=== PATIENT | male | born 1970 | race American Indian/Alaskan Native ===

== ENCOUNTER 2017-03-26 20:29 | Emergency (ER) | payer SELFPAY ==
[2017-03-26 20:49] VITALS: BP 155/80
== END 2017-03-27 02:57 | disposition left against medical advice (07) ==
LOC: ED 20:29
DX: J02.9 Acute pharyngitis, unspecified (principal); Z53.21 Procedure and treatment not carried out due to patient leaving prior to being seen by health care provider
CPT/HCPCS: 87430

== ENCOUNTER 2017-03-27 16:08 | Emergency (ER) | payer SELFPAY ==
[2017-03-27 16:21] VITALS: BP 142/86
[2017-03-27] MEDS ORDERED: TYLENOL PO ONE ×2 (16:21→21:49)
[2017-03-27] MEDS ORDERED: TYLENOL ONE (21:51)
== END 2017-03-27 21:20 | disposition left against medical advice (07) ==
LOC: ED 16:08
DX: J02.9 Acute pharyngitis, unspecified (principal); Z53.21 Procedure and treatment not carried out due to patient leaving prior to being seen by health care provider

== ENCOUNTER 2017-06-14 17:05 | Emergency (ER) | payer BC ==
[2017-06-14 17:36] VITALS: BP 147/73
[2017-06-14] MEDS ORDERED: NORCO 5/325 PO ONE (18:54)
--- NOTE | 2017-06-14 18:55 | Emergency Department Report ---
HPI - General Chief Complaint: Extremity Injury, Upper Time Seen by Provider: 06/14/17 18:51 - HPI HPI: right elbow pain, after working, no trauma. ED Past Medical Hx - Past Medical History Previous Medical History?: No - Surgical History Past Surgical History?: No - Social History Smoking Status: Current Every Day Smoker Substance Use Type: Alcohol - Medications Home Medications: Home Medications Medication Instructions Recorded Confirmed Last Taken Type Ketorolac [Toradol] 10 mg PO Q6H PRN #14 tablet 06/14/17 Unknown Rx ED Review of Systems ROS: Stated complaint: RIGHT ELBOW SWOLLEN Other details as noted in HPI Physical Exam - Physical Exam Vital Signs: Vital Signs 06/14/17 17:33 Temperature 98.3 F Pulse Rate 95 H Respiratory 18 Rate Blood Pressure 147/73 O2 Sat by Pulse 98 Oximetry ED Course Vital Signs 06/14/17 17:33 Temperature 98.3 F Pulse Rate 95 H Respiratory 18 Rate Blood Pressure 147/73 O2 Sat by Pulse 98 Oximetry Critical care attestation.: If time is entered above; I have spent that time in minutes in the direct care of this critically ill patient, excluding procedure time. ED Disposition Disposition: DC- TO HOME OR SELFCARE Condition: Stable Instructions: Tennis Elbow (ED) Prescriptions: Ketorolac [Toradol] 10 mg PO Q6H PRN #14 tablet PRN Reason: Pain Referrals: PEDRO BLOOM [Other] - 3-5 Days FANI LAMBERT MD [Staff Physician] - 3-5 Days Forms: Work/School Release Form(ED)
== END 2017-06-14 19:15 | disposition home or self-care (01) ==
LOC: ED 17:05
DX: M25.521 Pain in right elbow (principal); F17.200 Nicotine dependence, unspecified, uncomplicated
CPT/HCPCS: 99282

== ENCOUNTER 2018-09-28 10:00 | Emergency (ER) | payer SELFPAY ==
[2018-09-28] MEDS ORDERED: NACL 0.9% 1000 ML 1,000 ML IV ONE (10:12)
[2018-09-28 10:33] LABS: Basophils % (Auto) 0.5 % (0.0-1.8); Eosinophils # (Auto) 0.1 K/mm3 (0.0-0.4); Eosinophils % (Auto) 2.2 % (0.0-4.3); Hematocrit 43.7 % (35.5-45.6); Hemoglobin 14.9 gm/dl (11.8-15.2); Lymphocytes # (Auto) 1.9 K/mm3 (1.2-5.4); Lymphocytes % (Auto) 32.4 % (13.4-35.0); Mean Corpuscular HGB Conc 34 % (32-34); Mean Corpuscular Volume 96 fl (84-94); Monocytes # (Auto) 0.8 K/mm3 (0.0-0.8); Monocytes % (Auto) 13.5 % (0.0-7.3); Platelet Count 316 K/mm3 (140-440); Red Blood Count 4.58 M/mm3 (3.65-5.03); Red Cell Distribution Width 13.6 % (13.2-15.2)
[2018-09-28] MEDS ORDERED: TORADOL IV ONE (10:42)
[2018-09-28 10:43] LABS: INR 0.93 (0.87-1.13); Partial Thromboplastin Time 32.6 Sec. (24.2-36.6)
[2018-09-28 10:57] LABS: BUN/Creatinine Ratio 9; Blood Urea Nitrogen 9 mg/dL (9-20); Calcium 9.6 mg/dL (8.4-10.2); Hemolysis Index 38
[2018-09-28 11:01] LABS: Alanine Aminotransferase 24 units/L (7-56)
[2018-09-28 11:05] LABS: Bilirubin,Direct < 0.2 mg/dL (0-0.2)
[2018-09-28 11:28] LABS: Erythrocyte Sedimentation Rate 33 mm/Hr (0-20)
--- NOTE | 2018-09-28 11:52 | Cat Scan Report ---
CT HEAD WITHOUT CONTRAST INDICATION / CLINICAL INFORMATION: Headache for 4 days. TECHNIQUE: Axial imaging performed from the skull apex through the skull base without the use of cont rast. Sagittal and coronal reformatted images. All CT scans at this location are performed using CT dose reduction for ALARA by means of automated exposure control. COMPARISON: None available. FINDINGS: CEREBRAL PARENCHYMA: No significant abnormality. No acute territorial infarct. HEMORRHAGE: None. EXTRA-AXIAL SPACES: Normal in size and morphology for the patient's age. VENTRICULAR SYSTEM: Normal in size and morphology for the patient's age. MIDLINE SHIFT OR HERNIATION: None. CEREBELLUM / BRAINSTEM: No significant abnormality. CALVARIUM: No significant abnormality. ORBITS: Normal as visualized. PARANASAL SINUSES / MASTOID AIR CELLS: There is moderate mucosal thickening and trace fluid in the fr ontal, ethmoids and visualized superior maxillary sinuses. The sphenoid sinuses and mastoid air cells are well-aerated. SOFT TISSUES of HEAD: No significant abnormality. ADDITIONAL FINDINGS: None. IMPRESSION: No acute intracranial abnormality. Sinus disease as described. Correlate for acute sinusitis. Signer Name: Dawit Villa Jr, MD Signed: 09/28/2018 11:47 AM Workstation Name: [id number]
--- NOTE | 2018-09-28 12:54 | Emergency Department Report ---
ED General Adult HPI - General Chief complaint: Headache Stated complaint: HEADACHES FOR WKS/PAIN Time Seen by Provider: 09/28/18 12:43 Source: patient Mode of arrival: Ambulatory Limitations: No Limitations - History of Present Illness Initial comments: 47 year old male presents for evaluation of a frontal headache. He reports tenderness to pressure over his forehead. He said symptoms for the past few days. They have been associated with congestion. He thought he had a sinus infection and took a azithromycin which she had at home. He denies fever or chills, neck symptoms nausea vomiting and photophobia. It is no prior history of sinus infection nor any other medical problem. He denies a family history of cerebral aneurysm and migraine headache. He reports a gradual onset of a throbbing headache approximately 2 days ago. -: Gradual, days(s) Location: head Radiation: non-radiation Severity scale (0 -10): 6 Quality: other (throbbing) Consistency: intermittent Improves with: none Worsens with: none Associated Symptoms: denies other symptoms Treatments Prior to Arrival: other (azithromycin) - Related Data Previous Rx's Medication Instructions Recorded Last Taken Type Azithromycin [Zithromax Z-FLYNN] 250 mg PO DAILY #6 pack 09/28/18 Unknown Rx Butalb/Acetaminophen/Caffeine 1 cap PO Q6HR PRN #7 cap 09/28/18 Unknown Rx [Fioricet 50-300-40 mg CAP] Allergies Allergy/AdvReac Type Severity Reaction Status Date / Time Penicillins Allergy Hives Verified 03/26/17 20:40 ED Review of Systems ROS: Stated complaint: HEADACHES FOR WKS/PAIN Other details as noted in HPI Constitutional: denies: chills, fever Eyes: denies: eye pain, eye discharge, vision change ENT: as per HPI. denies: ear pain, throat pain Respiratory: denies: cough, shortness of breath, wheezing Cardiovascular: denies: chest pain, palpitations Endocrine: no symptoms reported Gastrointestinal: denies: abdominal pain, nausea, diarrhea Genitourinary: denies: urgency, dysuria Musculoskeletal: denies: back pain, joint swelling, arthralgia Skin: denies: rash, lesions Neurological: headache. denies: weakness, paresthesias Psychiatric: denies: anxiety, depression Hematological/Lymphatic: denies: easy bleeding, easy bruising ED Past Medical Hx - Past Medical History Previous Medical History?: No Hx Hypertension: No - Surgical History Past Surgical History?: No - Social History Smoking Status: Current Every Day Smoker Substance Use Type: Alcohol, Marijuana - Medications Home Medications: Home Medications Medication Instructions Recorded Confirmed Last Taken Type Azithromycin [Zithromax Z-FLYNN] 250 mg PO DAILY #6 pack 09/28/18 Unknown Rx Butalb/Acetaminophen/Caffeine 1 cap PO Q6HR PRN #7 cap 09/28/18 Unknown Rx [Fioricet 50-300-40 mg CAP] ED Physical Exam - General Limitations: No Limitations General appearance: alert, in no apparent distress - Head Head exam: Present: atraumatic, normocephalic, other (tenderness to pressure over the frontal sinuses no swelling no erythema) - Eye Eye exam: Present: normal appearance. Absent: scleral icterus - ENT ENT exam: Present: normal exam, normal orophraynx, mucous membranes moist - Neck Neck exam: Present: normal inspection, full ROM. Absent: tenderness, meningismus - Respiratory Respiratory exam: Present: normal lung sounds bilaterally. Absent: respiratory distress - Cardiovascular Cardiovascular Exam: Present: regular rate, normal rhythm. Absent: systolic murmur, diastolic murmur, rubs, gallop - GI/Abdominal GI/Abdominal exam: Present: soft, normal bowel sounds. Absent: distended, tenderness, guarding - Rectal Rectal exam: Present: deferred - Extremities Exam Extremities exam: Present: normal inspection. Absent: calf tenderness - Back Exam Back exam: Present: normal inspection. Absent: CVA tenderness (R), CVA tenderness (L), paraspinal tenderness, vertebral tenderness - Neurological Exam Neurological exam: Present: alert, oriented X3, CN II-XII intact. Absent: motor sensory deficit - Psychiatric Psychiatric exam: Present: normal affect, normal mood - Skin Skin exam: Present: warm, dry, intact, normal color. Absent: rash ED Course Vital Signs 09/28/18 09/28/18 10:13 10:41 Temperature 98.6 F 98.5 F Pulse Rate 71 61 Respiratory 20 18 Rate Blood Pressure 152/82 Blood Pressure 152/84 [Left] O2 Sat by Pulse 99 100 Oximetry - Reevaluation(s) Reevaluation #1: Patient without headache after Toradol. He looks well. He certainly not toxic. His labs were normal. His CT is correlating with frontal sinusitis. He will be treated thereof. He is appropriate for outpatient referral and disposition. 09/28/18 12:54 ED Medical Decision Making - Lab Data Result diagrams: 09/28/18 10:16 09/28/18 10:16 Laboratory Results - last 24 hr 09/28/18 09/28/18 09/28/18 10:16 10:16 10:16 WBC 6.0 RBC 4.58 Hgb 14.9 Hct 43.7 MCV 96 H MCH 33 H MCHC 34 RDW 13.6 Plt Count 316 Lymph % (Auto) 32.4 [place] % (Auto) 13.5 H Eos % (Auto) 2.2 Baso % (Auto) 0.5 Lymph # 1.9 [place] # 0.8 Eos # 0.1 Baso # 0.0 Seg Neutrophils % 51.4 Seg Neutrophils # 3.1 ESR 33 PT 12.2 INR 0.93 APTT 32.6 Sodium 139 Potassium 4.4 Chloride 102.2 Carbon Dioxide 27 Anion Gap 14 BUN 9 Creatinine 1.0 Estimated GFR > 60 BUN/Creatinine Ratio 9 Glucose 126 H Lactic Acid Calcium 9.6 Magnesium Total Bilirubin Direct Bilirubin AST ALT Alkaline Phosphatase Total Protein Albumin Albumin/Globulin Ratio 09/28/18 09/28/18 10:16 10:16 WBC RBC Hgb Hct MCV MCH MCHC RDW Plt Count Lymph % (Auto) [place] % (Auto) Eos % (Auto) Baso % (Auto) Lymph # [place] # Eos # Baso # Seg Neutrophils % Seg Neutrophils # ESR PT INR APTT Sodium Potassium Chloride Carbon Dioxide Anion Gap BUN Creatinine Estimated GFR BUN/Creatinine Ratio Glucose Lactic Acid 0.80 Calcium Magnesium 2.00 Total Bilirubin 0.50 Direct Bilirubin < 0.2 AST 15 ALT 24 Alkaline Phosphatase 84 Total Protein 7.7 Albumin 4.0 Albumin/Globulin Ratio 1.1 Critical care attestation.: If time is entered above; I have spent that time in minutes in the direct care o f this critically ill patient, excluding procedure time. ED Disposition Clinical Impression: Acute frontal sinusitis Qualifiers: Recurrence: not specified as recurrent Qualified Code(s): J01.10 - Acute front al sinusitis, unspecified Disposition: DC-01 TO HOME OR SELFCARE Is pt being admited?: No Does the pt Need Aspirin: No Condition: Stable Instructions: Sinusitis (ED), Acute Headache (ED) Additional Instructions: Follow up with [facility] and throat doctor. Return to the emergency department any significant headache fever or chills. Prescriptions: Butalb/Acetaminophen/Caffeine [Fioricet 50-300-40 mg CAP] 1 cap PO Q6HR PRN #7 cap PRN Reason: Headache Azithromycin [Zithromax Z-FLYNN] 250 mg PO DAILY #6 pack Referrals: PRIMARY CARE, [Primary Care Provider] - 3-5 Days Time of Disposition: 12:56
[2018-09-28 14:10] VITALS: BP 145/73
== END 2018-09-28 14:09 | disposition home or self-care (01) ==
LOC: ED 10:00
DX: J01.10 Acute frontal sinusitis, unspecified (principal); F17.200 Nicotine dependence, unspecified, uncomplicated; F12.10 Cannabis abuse, uncomplicated
CPT/HCPCS: 36415; 70450; 80048; 80076; 82140; 83735; 85025; 85610; 85652; 85730; 96374; 99284; J1885; J7030

== ENCOUNTER 2021-03-18 08:01 | Emergency (ER) | payer SELFPAY ==
[2021-03-18 08:14] VITALS: BP 152/90
--- NOTE | 2021-03-18 08:46 | XRay Report ---
CHEST 2 VIEWS INDICATION: Chest Pain. COMPARISON: None. FINDINGS: Support devices: None. Heart: Within normal limits. Lungs/Pleura: No acute air space or interstitial disease. No significant pleural effusion. IMPRESSION: No acute findings. Signer Name: Derek Forbes MD Signed: 03/18/2021 8:41 AM Workstation Name: [id number]
--- NOTE | 2021-03-18 08:51 | Emergency Department Report ---
ED General Adult HPI - General Chief complaint: High BP Stated complaint: BP HIGH PUI?: No Time Seen by Provider: 03/18/21 08:21 Source: patient Mode of arrival: Ambulatory Limitations: No Limitations - History of Present Illness Initial comments: 50 YO AA MALE COMES TO ER FROM WORK. HE STATES HE FELT FUNNY SO THEY TOOK HIS BP AND IT WAS ELEVATED. THEY SENT HIM TO ER. BP NOTED ON ARRIVAL TO BE SLIGHTLY ELEVATED NO HX HTN PT NEURO INTACT AMBULATORY NO CP NO SOB HE STATES THEY SCARED HIM. AND THEN GOT THE INVOLVED. -: Sudden Improves with: none Worsens with: none Associated Symptoms: denies other symptoms Treatments Prior to Arrival: none - Related Data Allergies Allergy/AdvReac Type Severity Reaction Status Date / Time Penicillins Allergy Hives Verified 03/26/17 20:40 ED Review of Systems ROS: Stated complaint: BP HIGH Other details as noted in HPI Comment: All other systems reviewed and negative ED Past Medical Hx - Past Medical History Previous Medical History?: No Hx Hypertension: No - Surgical History Past Surgical History?: No - Family History Family history: no significant - Social History Smoking Status: Current Every Day Smoker Substance Use Type: Alcohol, Marijuana ED Physical Exam - General Limitations: No Limitations General appearance: alert, in no apparent distress - Head Head exam: Present: atraumatic, normocephalic - Eye Eye exam: Present: normal appearance - ENT ENT exam: Present: mucous membranes moist - Neck Neck exam: Present: normal inspection - Respiratory Respiratory exam: Present: normal lung sounds bilaterally. Absent: respiratory distress - Cardiovascular Cardiovascular Exam: Present: regular rate, normal rhythm. Absent: systolic murmur, diastolic murmur, rubs, gallop - GI/Abdominal GI/Abdominal exam: Present: soft, normal bowel sounds - Rectal Rectal exam: Present: deferred - Extremities Exam Extremities exam: Present: normal inspection - Back Exam Back exam: Present: normal inspection - Neurological Exam Neurological exam: Present: alert, oriented X3 - Psychiatric Psychiatric exam: Present: normal affect, normal mood - Skin Skin exam: Present: warm, dry, intact, normal color. Absent: rash ED Course Vital Signs 03/18/21 08:13 Temperature 98.3 F Pulse Rate 76 Respiratory 18 Rate Blood Pressure 152/90 [Right] O2 Sat by Pulse 97 Oximetry ED Medical Decision Making - Lab Data Result diagrams: 03/18/21 08:50 03/18/21 08:50 - EKG Data EKG shows normal: sinus rhythm Rate: normal - EKG Data When compared to previous EKG there are: no significant change Interpretation: no acute changes, normal EKG - Radiology Data Radiology results: report reviewed, image reviewed - Medical Decision Making Labs 03/18/21 03/18/21 08:50 08:50 WBC 7.5 RBC 4.63 Hgb 14.9 Hct 43.3 MCV 94 MCH 32 MCHC 34 RDW 13.5 Plt Count 363 Sodium 140 Potassium 4.3 Chloride 104.1 Carbon Dioxide 22 Anion Gap 18 BUN 9 Creatinine 1.0 Estimated GFR > 60 BUN/Creatinine Ratio 9 Glucose 114 H Calcium 10.0 Magnesium 2.00 Total Bilirubin 0.60 AST 24 ALT 33 Alkaline Phosphatase 82 Troponin T < 0.010 Total Protein 8.4 H Albumin 4.9 Albumin/Globulin Ratio 1.4 Vital Signs 03/18/21 08:13 Temperature 98.3 F Pulse Rate 76 Respiratory 18 Rate Blood Pressure 152/90 [Right] O2 Sat by Pulse 97 Oximetry EKG NORMAL XRAY NORMAL LABS NORMAL BP MILDLY ELEVATED ON ARRIVAL NO CP OR SOB MADE HIM COME TO BE CHECKED EDUCATED ON FINDINGS DC HOME WITH DC PLAN OF CARE INCLUDING DIET/ACTIVITY/FOLLOW UP AND TRENDING HIS BP. HE VERBALIZES UNDERSTANDING OF PLAN OF CARE - Differential Diagnosis htn; ro acs/aortic disease Critical care attestation.: If time is entered above; I have spent that time in minutes in the direct care of this critically ill patient, excluding procedure time. ED Disposition Clinical Impression: Elevated blood-pressure reading without diagnosis of hypertension Disposition: 01 HOME / SELF CARE / HOMELESS Is pt being admited?: No Does the pt Need Aspirin: No Condition: Stable Instructions: Hypertension, Adult, [id number], Preventing Hypertension Additional Instructions: TAKE BLOOD PRESSURE DAILY WE DISCUSSED SAME CUFF SAME ARM SAME TIME OF DAY RECORD IT IN PHONE DRINK ALOT OF WATER AVOID FATTY/FAST AND FRIED FOOD AVOID SALT FOLLOW UP WITH OUR PCP NEXT WEEK REFERRAL BELOW TAKE YOUR BP LOG WITH YOU TO THE APPOINTMENT Referrals: HUSSAIN PACE MD [Staff Physician] - 3-5 Days Forms: Work/School Release Form(ED) Time of Disposition: 09:25 Print Language: FRISIAN
[2021-03-18 09:03] LABS: Hematocrit 43.3 % (35.5-45.6); Hemoglobin 14.9 gm/dl (11.8-15.2); Mean Corpuscular HGB Conc 34 % (32-34); Mean Corpuscular Volume 94 fl (84-94); Platelet Count 363 K/mm3 (140-440); Red Blood Count 4.63 M/mm3 (3.65-5.03); Red Cell Distribution Width 13.5 % (13.2-15.2)
[2021-03-18 09:21] LABS: Alanine Aminotransferase 33 units/L (7-56); Albumin 4.9 g/dL (3.9-5); BUN/Creatinine Ratio 9; Blood Urea Nitrogen 9 mg/dL (9-20); Hemolysis Index 8
--- NOTE | 2021-03-18 10:28 | Electrocardiograph Report ---
[facility] Test Date: 2021-03-18 Test Time: 08:26:11 Pat Name: KAHLIL TYLER Department: Room: Gender: M Dishwasher Preparer: JAJA : 1970 Requested By: TREVON WADE Order Number: [id number] Reading MD: Francisco Menendez Measurements Intervals [place] Rate: 67 P: 24 NM: 145 QRS: 22 QRSD: 88 T: 10 QT: 387 QTc: 409 Interpretive Statements Sinus rhythm No previous ECG available for comparison Electronically Signed On 03-18-2021 10:27:54 EST by Francisco Menendez
== END 2021-03-18 09:33 | disposition home or self-care (01) ==
LOC: ED 08:01
DX: R03.0 Elevated blood-pressure reading, without diagnosis of hypertension (principal); F17.200 Nicotine dependence, unspecified, uncomplicated; Z88.0 Allergy status to penicillin
CPT/HCPCS: 36415; 71046; 80053; 83735; 83880; 84484; 85027; 93005; 93010; 99283

== ENCOUNTER 2021-09-30 10:59 | Emergency (ER) | payer BC ==
[2021-09-30 11:46] VITALS: BP 132/82
--- NOTE | 2021-09-30 12:56 | Emergency Department Report ---
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 50-year-old male with no known history of hypertension presents states high blood pressure. Patient reports blood pressure this morning was in the 180s systolic over 150s diastolic, denies history of hypertension, symptoms associated with headache, dizziness, fatigue. He denies chest pain, no shortness of breath. In the setting of a significantly high volume and record number of patients presenting to the emergency department and the fact that we have a limited space to see patients we have implemented the provider in triage protocol this allows an expedited initial exam of patients that might otherwise have left without being seen or who would wait longer than usual to be seen by provider. I interviewed the patient and performed a limited physical exam. This patient is a pulled from the waiting room to triage room for an initial assessment of adrenal studies and then returned to the waiting room pending results of the studies. The ultimate final evaluation and disposition may be performed by another provider depending on room and provider availability. - Exam Vital Signs: Vital Signs 09/30/21 11:42 Temperature 97.8 F Pulse Rate 89 Respiratory 18 Rate Blood Pressure 132/82 [Right] O2 Sat by Pulse 97 Oximetry MSE screening note: Focused history and physical exam performed. Due to findings the following was ordered: ED Disposition for MSE Condition: Stable
--- NOTE | 2021-09-30 13:23 | Electrocardiograph Report ---
[facility] Test Date: 2021-09-30 Test Time: 12:05:34 Pat Name: KAHLIL TYLER Department: Room: Gender: M Public Works Director: JOYCELYN : 1970 Requested By: PATRICK ZHONG Order Number: [id number] Reading MD: Dann Orr Measurements Intervals [place] Rate: 86 P: 43 SD: 152 QRS: 12 QRSD: 83 T: 2 QT: 348 QTc: 417 Interpretive Statements Sinus rhythm Probable anteroseptal infarct, old Compared to ECG 03/18/2021 08:26:11 Electronically Signed On 09-30-2021 13:23:19 EDT by Dann Orr
[2021-09-30 13:43] LABS: Mean Corpuscular HGB Conc 37 % (32-34); Mean Corpuscular Volume 94 fl (84-94); Platelet Count 380 K/mm3 (140-440); Red Blood Count 4.47 M/mm3 (3.65-5.03); Red Cell Distribution Width 13.4 % (13.2-15.2)
[2021-09-30 13:48] LABS: Hematocrit 42.1 % (35.5-45.6); Hemoglobin 15.6 gm/dl (11.8-15.2)
[2021-09-30 14:07] LABS: BUN/Creatinine Ratio 11; Blood Urea Nitrogen 11 mg/dL (9-20); Calcium 10.1 mg/dL (8.4-10.2); Hemolysis Index 6
[2021-09-30 15:11] LABS: Basophils % (Manual) 0 % (0.0-1.8); Myelocytes # (Manual) 0.1 K/mm3; Total Cells Counted 100
[2021-09-30 15:12] LABS: Large Platelets Few; Platelet Estimate Consistent w Auto; Stomatocytes Few
== END 2021-09-30 13:05 | disposition left against medical advice (07) ==
LOC: ED 10:59
DX: I10 Essential (primary) hypertension (principal); Z53.21 Procedure and treatment not carried out due to patient leaving prior to being seen by health care provider
CPT/HCPCS: 36415; 80048; 84484; 85007; 85025; 93005